=== PATIENT | female | born 1935 | race Caucasian/White ===

== ENCOUNTER 2016-12-28 08:56 | Inpatient (IN) ==
[2016-12-28 09:46] LABS: BASO% 0.1 % (0.0-0.8); HEMATOCRIT 29.1 % (37.0-47.0); HEMOGLOBIN 9.7 g/dL (12.0-16.0); IMM GRAN# 0.14 X1000 (0.0-0.04); IMM GRAN% 0.6 % (0.0-0.5); LYMPH# 1.25 X1000 (1.2-3.4); LYMPH% 5.7 % (20.5-51.1); MANUAL DIFF NEEDED? NO; MCH 31.2 PG (27-31); MCHC 33.3 g/dL (33-37); MCV 93.6 FL (81-99); MONO# 0.78 X1000 (0.11-0.59); MONO% 3.6 % (1.7-9.3); MPV 12.4 FL (7.4-10.4); PLT 200 X1000 (130-400); RBC 3.11 XMIL (4.2-5.4)
[2016-12-28 09:54] LABS: INR 1.12; PROTIME 11.9 Seconds (9.2-11.7); PTT 21.2 Seconds (22.0-36.0)
[2016-12-28] MEDS ORDERED: NS 2,000 ML IV ONE (09:56)
[2016-12-28 09:59] LABS: ALBUMIN 3.7 g/dL (3.5-5.0); CALCIUM 9.3 mg/dL (8.8-10.2); POTASSIUM 3.8 mmol/L (3.5-5.1); TOTAL BILIRUBIN 0.55 mg/dL (0.20-1.00); TOTAL PROTEIN 5.7 g/dL (6.3-8.3)
[2016-12-28] MEDS ORDERED: NS 1,000 ML IV ONE ×2 (10:07)
[2016-12-28] MEDS ORDERED: PROTONIX IV SCH (10:30)
--- NOTE | 2016-12-28 11:08 | Diag Imaging Result Doc PS360 ---
EXAM: FLAT/UPRIGHT ABD/1 VIEW CHEST HISTORY: gib, leukocytosis TECHNIQUE: Flat and upright abdomen with AP chest COMMENT: There is a large hiatal hernia. There is no evidence of bowel obstruction organomegaly or mass. Considering differences in technique the appearance of the chest has not changed significantly since the previous study of 06/13/2016. IMPRESSION: Hiatal hernia. Electronically signed by Maximus Rivera 12/28/2016 11:06 AM
[2016-12-28 11:27] LABS: HEMOGLOBIN A1C 5.6 % (4.8-6.0)
[2016-12-28 11:48] LABS: URINE CULTURE NEEDED? NO; URINE MICRO REVIEW NEEDED? NO; URINE SOURCE CATH
[2016-12-28 11:54] LABS: BILIRUBIN URINE NEGATIVE (NEGATIVE); BLOOD URINE NEGATIVE (NEGATIVE); COLOR STRAW; GLUCOSE URINE NEGATIVE (NEGATIVE); LEUKOCYTES URINE NEGATIVE (NEGATIVE); NITRITE URINE NEGATIVE (NEGATIVE); PROTEIN URINE NEGATIVE (NEGATIVE); SP GRAVITY URINE 1.018; TURBIDITY URINE CLEAR (CLEAR); UR EPITHELIAL CELLS <10 /HPF (<10); URINE BACTERIA NEGATIVE /HPF; URINE RBC <10 /HPF (<10); URINE WBC <10 /HPF (<10); UROBILINOGEN URINE NORMAL (NORMAL)
[2016-12-28 11:55] LABS: UR CHLORIDE 10 mmoll; UR SODIUM 10 mmoll
[2016-12-28] MEDS ORDERED: SODIUM CHLORIDE 0.9% INJ PRN (12:07)
[2016-12-28] MEDS ORDERED: ZOFRAN IV PRN (12:07)
[2016-12-28] MEDS ORDERED: PHENERGAN IV PRN (12:07)
[2016-12-28] MEDS: NS 1,000 ML IV PRN (12:26)
--- NOTE | 2016-12-28 13:13 | Diag Imaging Result Doc PS360 ---
EXAM: CT HEAD W/O CONTRAST - 12/28/2016 HISTORY: ams, syncope TECHNIQUE: Dose reduction protocol COMPARISON: 04/15/2015 FINDINGS: There are mild atrophic changes and mild chronic microvascular ischemic changes. There is no evidence of recent infarct, although acute infarcts may not be immediately visible. There is no evidence of intracranial hemorrhage, mass effect, midline shift, or hydrocephalus. IMPRESSION: No visible acute intracranial abnormality. No hemorrhage or mass effect. Electronically signed by Shun Koo 12/28/2016 1:10 PM
--- NOTE | 2016-12-28 13:17 | Diag Imaging Result Doc PS360 ---
EXAM: CT THORAX W/O CONTRAST - 12/28/2016 HISTORY: abd pain, hematemesis TECHNIQUE: Dose reduction protocol COMPARISON: 01/22/2016 FINDINGS: There is a large hiatal hernia. The stomach is substantially distended with fluid in the hiatal hernia and distal to the hernia. The thoracic esophagus is largely distended with fluid. There is some compressive atelectasis of the bilateral lower lobes from a hiatal hernia, most prominent on the left. The remainder of the lungs appear essentially clear. There is no consolidation, pleural effusion, or pneumothorax identified. IMPRESSION: Large hiatal hernia. The stomach is distended with fluid within and distal to the hiatal hernia. The thoracic esophagus is also largely distended with fluid. There is some compressive atelectasis at the bilateral lower lobes from the hernia. There is no evidence of pneumonia. Electronically signed by Shun Koo 12/28/2016 1:14 PM
--- NOTE | 2016-12-28 13:32 | Diag Imaging Result Doc PS360 ---
EXAM: CT ABDOMEN/PELVIS W/O CONTRAST - 12/28/2016 HISTORY: abd pain, GIB TECHNIQUE: Without contrast per request the referring provider. Dose reduction protocol. COMPARISON: Images of the upper abdomen from the 01/22/2016 CT thorax FINDINGS: There is a large hiatal hernia seen on the CT thorax. The stomach is distended with fluid within and distal to the hernia. The portions of the stomach distal to the hernia does not appear to represent the distal most stomach, however. The gastroduodenal junction may be located in the hernia. The possibility of gastric obstruction due to pinching of the stomach at the hernia orifice cannot be excluded. The small bowel is not distended. There is mild colonic diverticulosis. There is no diverticulitis identified. The mid sigmoid colon is partially obscured by streak artifacts from metallic bilateral hip prostheses. There is no abscess identified. There is no free air identified. There is a small hepatic cysts. There are no acute abnormalities of the liver, spleen, or pancreas identified. There is a 3.7 x 2.9 cm low-density left adrenal nodule which appears stable in size but has developed mild stranding in the nearby fat posterior to the nodule. This may represent an adenoma. The right adrenal gland and bilateral kidneys show no acute changes. There is no renal stone or hydronephrosis identified. There is substantial multilevel lumbar spine degenerative changes noted. There is grade 1 anterolisthesis at L4-5 there is grade 2 anterolisthesis at L5-S1 which may relate to severe facet degeneration and/or pars defects. IMPRESSION: Large hiatal hernia. Substantial distention of stomach with fluid. The possibility of gastric obstruction caused by pinching of the stomach at the hernia orifice cannot be excluded. There is no evidence of small bowel obstruction otherwise. Colonic diverticulosis. No evidence of diverticulitis. No abscess. No free air. Apparent large left adrenal adenoma which is grossly similar to the previous exam except for some mild surrounding edema. Severe lumbar spine degenerative changes. Results discussed by telephone with Dr. Myles at 1:28 PM on 12/28/2016. Electronically signed by Shun Koo 12/28/2016 1:30 PM
[2016-12-28 14:01] LABS: HEMATOCRIT 24.7 % (37.0-47.0); HEMOGLOBIN 8.2 g/dL (12.0-16.0)
[2016-12-28] MEDS: PROTONIX 80 MG in NS 80 ML IV SCH ×2 (14:30→22:39)
[2016-12-28] MEDS ORDERED: DIPRIVAN 1% ONE (17:52)
[2016-12-28] MEDS ORDERED: XYLOCAINE-MPF 2% ONE (17:52)
[2016-12-28] MEDS ORDERED: VANCOMYCIN IV PER PHARMACY MISC SCH (19:30)
[2016-12-28] MEDS ORDERED: NS 500 ML ONE (19:34)
[2016-12-28 19:45] LABS: HEMATOCRIT 25.7 % (37.0-47.0); HEMOGLOBIN 8.5 g/dL (12.0-16.0)
[2016-12-28] MEDS: ZOSYN 3.375 GM in NS 50 ML IV SCH (20:34)
[2016-12-28] MEDS ORDERED: VANCOMYCIN 1,500 MG in NS 250 ML IV ONE (21:00)
[2016-12-28] MEDS: DILAUDID IV PRN (22:17)
[2016-12-28 22:32] LABS: HEMATOCRIT 27.2 % (37.0-47.0); HEMOGLOBIN 9.1 g/dL (12.0-16.0)
[2016-12-29] MEDS: PROTONIX 80 MG in NS 80 ML IV SCH ×3 (00:23→19:20)
[2016-12-29] MEDS: ZOSYN 3.375 GM in NS 50 ML IV SCH ×4 (00:29→18:51)
[2016-12-29] MEDS: NS 1,000 ML IV PRN (01:43)
[2016-12-29 04:28] LABS: HEMATOCRIT 28.9 % (37.0-47.0); HEMOGLOBIN 9.4 g/dL (12.0-16.0); MCH 28.6 PG (27-31); MCHC 32.5 g/dL (33-37); MCV 87.8 FL (81-99); MPV 11.1 FL (7.4-10.4); RBC 3.29 XMIL (4.2-5.4); RETIC% 2.52 % (0.8-2.1); RETIC-HE 35.7 PG (28.2-36.6)
[2016-12-29 04:32] LABS: ALLEN TEST YES; BE 3.8 mmoll (-3.0-3.0); BLOOD TYPE ARTERIAL; DRAW SITE R RADIAL; METHB 0.7 % (0.0-1.5); O2(CT) 11.3 mL/dL (15.0-23.0); PCO2(98.6) 43 mmHg (35-45); PO2(98.6) 68 mmHg (60-100); SAMPLE BLOOD; SAO2 96.4 % (95.0-100.0); THB 8.5 g/dL (11.5-17.4); pH(98.6) 7.43 (7.35-7.45)
[2016-12-29 04:33] LABS: MODALITY CANNULA
[2016-12-29 05:07] LABS: FERRITIN 144 ng/mL (13-150)
[2016-12-29 05:43] LABS: CALCIUM 7.7 mg/dL (8.8-10.2)
--- NOTE | 2016-12-29 07:28 | Diag Imaging Result Doc PS360 ---
FLAT/UPRIGHT ABD/1 VIEW CHEST - 12/29/2016 INDICATION: hiatal hernia TECHNIQUE: Three views COMPARISON: 12/28/2016 FINDINGS: There is a new nasogastric tube, the tip is behind the heart. This is probably within a large hiatal hernia. Heart size is moderately enlarged stable from prior. There is some hazy atelectasis or infiltrate at the lateral left lung base probably from a combination of the enlarged heart and hiatal hernia. No bowel obstruction or free air in the abdomen. There is severe scoliosis and degeneration throughout the lumbar spine. There are bilateral hip replacements. IMPRESSION: Large hiatal hernia. Nasogastric tube is behind the heart probably within the hiatal hernia. No acute disease in the abdomen. Electronically signed by Min Lewis 12/29/2016 7:25 AM
[2016-12-29] MEDS ORDERED: POTASSIUM CHLORIDE 60 MEQ in NS 500 ML IV ONE (07:41)
[2016-12-29] MEDS: D5W 1,000 ML IV SCH ×2 (09:01→20:13)
[2016-12-29] MEDS: DILAUDID IV PRN (16:29)
[2016-12-30] MEDS: ZOSYN 3.375 GM in NS 50 ML IV SCH ×4 (01:20→18:30)
[2016-12-30] MEDS: PROTONIX 80 MG in NS 80 ML IV SCH ×2 (05:38→15:30)
[2016-12-30 06:38] LABS: HEMATOCRIT 25.2 % (37.0-47.0); HEMOGLOBIN 8.3 g/dL (12.0-16.0); MCHC 32.9 g/dL (33-37); MPV 11.6 FL (7.4-10.4); RBC 2.77 XMIL (4.2-5.4)
[2016-12-30 06:52] LABS: AGAP 12; BUN 18 mg/dL (8-22); CALCIUM 7.6 mg/dL (8.8-10.2); CHLORIDE 104 mmol/L (98-107); COSMO 286; SODIUM 142 mmol/L (136-145); TCO2 26 mmol/L (25-35)
[2016-12-30] MEDS ORDERED: POTASSIUM PHOSPHATE 40 MMOL in NS 250 ML IV ONE (08:30)
[2016-12-30] MEDS: VANCOMYCIN 1,200 MG in NS 250 ML IV SCH (09:46)
--- NOTE | 2016-12-30 13:36 | Diag Imaging Result Doc PS360 ---
KUB ABDOMEN - 12/30/2016 INDICATION: Contrast placement around hernia TECHNIQUE: 100 mL of water-soluble contrast was infused into the patient's nasogastric tube, and imaging was performed one hour later COMPARISON: 12/29/2016 FINDINGS: The contrast outlines the rather large hiatal hernia, with nearly the entire stomach in the chest. The duodenum is directed into the abdomen, and there is normal filling of the small bowel in the abdomen and pelvis. IMPRESSION: Large hiatal hernia with most of the stomach in the chest. This appears nonobstructed. The gastroesophageal junction appears to be right at the diaphragm, but probably within the chest. Electronically signed by Min Lewis 12/30/2016 1:34 PM
[2016-12-30] MEDS: D5W 1,000 ML IV SCH (14:37)
[2016-12-31] MEDS: ZOSYN 3.375 GM in NS 50 ML IV SCH ×4 (01:05→19:47)
[2016-12-31] MEDS: PROTONIX 80 MG in NS 80 ML IV SCH ×3 (01:46→13:32)
[2016-12-31] MEDS: DILAUDID IV PRN (01:46)
[2016-12-31 05:51] LABS: HEMATOCRIT 35.3 % (37.0-47.0); HEMOGLOBIN 12.2 g/dL (12.0-16.0); MCH 30.4 PG (27-31); MCHC 34.6 g/dL (33-37); MPV 11.6 FL (7.4-10.4); RBC 4.01 XMIL (4.2-5.4)
[2016-12-31 06:16] LABS: AGAP 6; BUN 7 mg/dL (8-22); CALCIUM 8.8 mg/dL (8.8-10.2); CHLORIDE 103 mmol/L (98-107); COSMO 276; POTASSIUM 3.1 mmol/L (3.5-5.1); SODIUM 139 mmol/L (136-145); TCO2 30 mmol/L (25-35)
[2016-12-31] MEDS ORDERED: POTASSIUM CHLORIDE 60 MEQ in NS 500 ML IV ONE (06:27)
[2016-12-31] MEDS: D5W 1,000 ML IV SCH ×3 (06:34→22:14)
[2016-12-31] MEDS ORDERED: MAGNESIUM SULFATE 2 GM/S.W.I. 2 GM/50 ML IVPB IV ONE (06:43)
--- NOTE | 2016-12-31 09:12 | Diag Imaging Result Doc PS360 ---
KUB ABDOMEN - 12/31/2016 INDICATION: Hiatal hernia TECHNIQUE: COMPARISON: 12/30/2016 FINDINGS: The contrast has also successfully moved out of the stomach and small bowels, and is now in the transverse and distal colon. No evidence of obstruction or free air. No new abnormalities. IMPRESSION: Good passage of contrast through the enteric tract. No obstruction. Electronically signed by Min Lewis 12/31/2016 9:10 AM
[2016-12-31] MEDS ORDERED: CALMOSEPTINE OINTMENT TOP PRN (09:51)
[2016-12-31] MEDS: PROTONIX IV SCH (13:33)
[2016-12-31] MEDS: LOPRESSOR PO SCH (20:22)
[2016-12-31] MEDS: TUMS PO PRN (20:22)
[2016-12-31] MEDS: VANCOMYCIN 1,200 MG in NS 250 ML IV SCH (23:30)
[2017-01-01] MEDS: SODIUM CHLORIDE 0.9% INJ SCH ×2 (03:47→14:01)
[2017-01-01] MEDS: PROTONIX IV SCH ×2 (03:47→14:01)
[2017-01-01] MEDS: ZOSYN 3.375 GM in NS 50 ML IV SCH ×4 (03:47→23:22)
[2017-01-01 05:23] LABS: HEMATOCRIT 35.3 % (37.0-47.0); MCH 29.6 PG (27-31); MCV 86.9 FL (81-99); MPV 11.9 FL (7.4-10.4); RBC 4.06 XMIL (4.2-5.4)
[2017-01-01 05:32] LABS: AGAP 11; BUN 5 mg/dL (8-22); CALCIUM 8.5 mg/dL (8.8-10.2); CHLORIDE 103 mmol/L (98-107); COSMO 276; POTASSIUM 3.8 mmol/L (3.5-5.1); SODIUM 139 mmol/L (136-145); TCO2 25 mmol/L (25-35)
[2017-01-01] MEDS: TUMS PO PRN (08:13)
[2017-01-01] MEDS: LOPRESSOR PO SCH ×2 (09:35→23:22)
[2017-01-01] MEDS ORDERED: VANCOMYCIN 1,200 MG in NS 250 ML IV SCH (21:00)
[2017-01-02] MEDS: ZOSYN 3.375 GM in NS 50 ML IV SCH (03:43)
[2017-01-02] MEDS: PROTONIX IV SCH (03:43)
[2017-01-02 06:25] LABS: HEMATOCRIT 36.5 % (37.0-47.0); HEMOGLOBIN 12.4 g/dL (12.0-16.0); MCH 30.2 PG (27-31); MCV 88.8 FL (81-99); MPV 11.6 FL (7.4-10.4); RBC 4.11 XMIL (4.2-5.4)
[2017-01-02 06:43] LABS: MAGNESIUM 1.7 mg/dL (1.5-2.7)
[2017-01-02 06:58] LABS: CALCIUM 9.8 mg/dL (8.8-10.2); POTASSIUM 3.6 mmol/L (3.5-5.1)
[2017-01-02 07:37] VITALS: BP 145/68
[2017-01-02] MEDS: LOPRESSOR PO SCH (08:47)
== END 2017-01-02 13:18 | disposition home or self-care (01) ==
LOC: SUPCPDRO → ED 08:56 → SUATTDRO 11:05 → EDIPHOLD 11:05 → ICU 15:21 → 4N 01-01 17:11
PROVIDERS: ATTEND Internal Medicine